=== PATIENT | female | born 1950 | race Caucasian/White ===

== ENCOUNTER 2016-06-13 07:47 | Inpatient (IN) | payer MEDICARE, OTHER ==
[2016-06-13] VITALS (16 sets, daily range): BP systolic 97–174; RESP 15–22; TEMP 97.5–98.5
[~2016-06-13 07:47] MED LIST: DIPHENHYDRAMINE 50 MG/ML VIAL IV ONE; FENTANYL 100 MCG/2 ML AMP IV ONE; GLYCOPYRROLATE 0.2 MG/ML VIAL IV ONE; LIDOCAINE 2% JELLY GLYDO 6 ML TOPICAL ONE; MEPERIDINE 25 MG/ML IV ONE; METOPROLOL 5 MG/5 ML VIAL IV ONE; NEOSTIGMINE 10 MG/10 ML VIAL IV ONE; PROPOFOL 20 ML PER ML IV ONE; ROCURONIUM 50 MG VIAL IV ONE
[2016-06-13] MEDS ORDERED: DILAUDID 1 MG/ML AMP ONE ×2 (09:16→11:37)
[2016-06-13] MEDS ORDERED: SODIUM CHLORIDE 0.9% 1,000 ML ONE (09:16)
[2016-06-13] MEDS ORDERED: ONDANSETRON 4 MG VIAL ONE (09:16)
[2016-06-13] MEDS ORDERED: METOCLOPRAMIDE 10 MG/2 ML VIAL ONE (11:36)
[2016-06-13] MEDS ORDERED: ONDANSETRON 4 MG VIAL IV PUSH PRN (12:30)
[2016-06-13] MEDS ORDERED: SODIUM CHLORIDE 0.45% 1,000 ML IV SCH (12:30)
[2016-06-13] MEDS: DILAUDID 1 MG/ML AMP IV PRN ×3 (14:34→23:40)
[2016-06-13] MEDS ORDERED: GLYCOPYRROLATE 0.2 MG/ML VIAL IV ONE (16:45)
[2016-06-13] MEDS ORDERED: LACT RINGERS 1,000 ML IV SCH (16:45)
[2016-06-13] MEDS ORDERED: MIDAZOLAM 2 MG/2 ML INJ IV ONE (16:45)
[2016-06-13] MEDS ORDERED: SCOPOLAMINE PATCH TRANSDERM ONE (16:45)
[2016-06-13] MEDS ORDERED: DEXAMETHASONE 4 MG/ML VIAL IV ONE (16:45)
[2016-06-13] MEDS ORDERED: ONDANSETRON 4 MG VIAL IV ONE (16:45)
[2016-06-13] MEDS ORDERED: CEFTRIAXONE 1 GM in SODIUM CHLORIDE 0.9% 50 ML IV ONE (17:30)
[2016-06-13] MEDS ORDERED: MORPHINE 4 MG/ML SYR IV PRN (17:55)
[2016-06-13] MEDS ORDERED: MORPHINE 2 MG/ML SYR IV PRN (17:55)
[2016-06-13] MEDS ORDERED: DILAUDID 1 MG/ML AMP IV PRN (17:55)
[2016-06-13] MEDS ORDERED: OXYCODONE 5 MG TAB PO PRN ×2 (17:55→19:10)
[2016-06-13] MEDS ORDERED: MEPERIDINE 25 MG/ML IV PRN (17:55)
[2016-06-13] MEDS ORDERED: ONDANSETRON 4 MG VIAL IV PRN (17:55)
[2016-06-13] MEDS ORDERED: GLUCAGON 1 MG VIAL IM PRN (19:15)
[2016-06-13] MEDS ORDERED: DEXTROSE 50% SYRINGE 50 ML IV PRN (19:15)
[2016-06-13] MEDS: Atorvastatin 40 MG TAB PO SCH (21:15)
[2016-06-13] MEDS: FENOFIBRATE 48 MG TAB PO SCH (21:15)
[2016-06-13] MEDS: METFORMIN 500 MG TAB PO SCH (21:24)
[2016-06-13] MEDS: SODIUM CHLORIDE 0.45% 1,000 ML IV SCH (21:35)
[2016-06-13] MEDS: OXYCODONE 5 MG TAB PO PRN (22:26)
[2016-06-13] MEDS: ONDANSETRON 4 MG VIAL IV PRN (23:42)
[2016-06-14] VITALS (8 sets, daily range): BP systolic 103–167; RESP 15–16; TEMP 98.1–99.6
[2016-06-14] MEDS: ACETAMINOPHEN 325 MG TAB PO PRN ×2 (00:51→21:54)
[2016-06-14] MEDS: DILAUDID 1 MG/ML AMP IV PRN ×4 (02:14→14:51)
[2016-06-14] MEDS: ONDANSETRON 4 MG VIAL IV PRN ×3 (05:49→14:51)
[2016-06-14] MEDS: LEVOTHYROXINE 0.15 MG TAB PO SCH (05:50)
[2016-06-14] MEDS: CEFTRIAXONE 1 GM in SODIUM CHLORIDE 0.9% 50 ML IV SCH (09:08)
[2016-06-14] MEDS: GLIMEPIRIDE 2 MG TAB PO SCH (09:09)
[2016-06-14] MEDS: Aspirin 325 MG TAB PO SCH (09:09)
[2016-06-14] MEDS: METFORMIN 500 MG TAB PO SCH ×2 (09:09→19:45)
[2016-06-14] MEDS: amLODIPine 10 MG TAB PO SCH (09:09)
[2016-06-14] MEDS: METOPROLOL XL 25 MG TAB PO SCH (09:09)
[2016-06-14] MEDS: VALSARTAN 80 MG TAB PO SCH (09:09)
[2016-06-14] MEDS ORDERED: MISSING DOSE XX ONE (10:45)
[2016-06-14] MEDS: PHENAZOPYRIDINE 100 MG TAB PO SCH ×3 (11:05→19:46)
[2016-06-14] MEDS: OXYCODONE 5 MG TAB PO PRN ×2 (11:11→19:46)
[2016-06-14] MEDS: SODIUM CHLORIDE 0.45% 1,000 ML IV SCH ×2 (12:20→21:51)
[2016-06-14] MEDS ORDERED: REMOVE TRANSDERMAL PATCH TOPICAL ONE (16:45)
[2016-06-14] MEDS: FENOFIBRATE 48 MG TAB PO SCH (19:46)
[2016-06-14] MEDS: Atorvastatin 40 MG TAB PO SCH (19:46)
[2016-06-15] VITALS (9 sets, daily range): BP systolic 107–152; RESP 16–18; TEMP 98–99.3
[2016-06-15] MEDS: OXYCODONE 5 MG TAB PO PRN ×4 (03:59→21:41)
[2016-06-15] MEDS: LEVOTHYROXINE 0.15 MG TAB PO SCH (04:00)
[2016-06-15] MEDS: CEFTRIAXONE 1 GM in SODIUM CHLORIDE 0.9% 50 ML IV SCH (08:21)
[2016-06-15] MEDS: Aspirin 325 MG TAB PO SCH (08:22)
[2016-06-15] MEDS: METFORMIN 500 MG TAB PO SCH ×2 (08:22→19:51)
[2016-06-15] MEDS: VALSARTAN 80 MG TAB PO SCH (08:22)
[2016-06-15] MEDS: PHENAZOPYRIDINE 100 MG TAB PO SCH ×3 (08:22→19:51)
[2016-06-15] MEDS: GLIMEPIRIDE 2 MG TAB PO SCH (08:23)
[2016-06-15] MEDS: amLODIPine 10 MG TAB PO SCH (08:23)
[2016-06-15] MEDS: METOPROLOL XL 25 MG TAB PO SCH (08:23)
[2016-06-15] MEDS: LEVOFLOXACIN 250 MG TAB PO SCH (11:47)
[2016-06-15] MEDS ORDERED: SALINE FLUSH 10 ML FLUSH PRN (19:25)
[2016-06-15] MEDS: Atorvastatin 40 MG TAB PO SCH (19:51)
[2016-06-15] MEDS: FENOFIBRATE 48 MG TAB PO SCH (19:51)
[2016-06-15] MEDS: SALINE FLUSH 10 ML FLUSH SCH (19:52)
[2016-06-16 03:17] VITALS: BP_SYST 151; TEMP 98.1
[2016-06-16 03:18] VITALS: RESP 16
[2016-06-16] MEDS ORDERED: SODIUM CHLORIDE 0.9% FLUSH BAG 500 ML IV SCH (06:00)
[2016-06-16] MEDS: LEVOTHYROXINE 0.15 MG TAB PO SCH (06:29)
[2016-06-16 07:44] VITALS: BP_SYST 145; RESP 16; TEMP 98.1
[2016-06-16] MEDS: CEFTRIAXONE 1 GM in SODIUM CHLORIDE 0.9% 50 ML IV SCH (07:48)
[2016-06-16] MEDS: SALINE FLUSH 10 ML FLUSH SCH (07:48)
[2016-06-16] MEDS: LEVOFLOXACIN 250 MG TAB PO SCH (07:49)
[2016-06-16] MEDS: VALSARTAN 80 MG TAB PO SCH (07:49)
[2016-06-16] MEDS: amLODIPine 10 MG TAB PO SCH (07:49)
[2016-06-16] MEDS: Aspirin 325 MG TAB PO SCH (07:49)
[2016-06-16] MEDS: PHENAZOPYRIDINE 100 MG TAB PO SCH (07:49)
[2016-06-16] MEDS: METFORMIN 500 MG TAB PO SCH (07:50)
[2016-06-16] MEDS: GLIMEPIRIDE 2 MG TAB PO SCH (07:50)
[2016-06-16] MEDS: METOPROLOL XL 25 MG TAB PO SCH (07:51)
[2016-06-16 11:13] VITALS: BP_SYST 129; RESP 16; TEMP 98.3
[2016-06-16] MEDS: OXYCODONE 5 MG TAB PO PRN (12:21)
[2016-06-16 13:16] VITALS: BP_SYST 129; RESP 16; TEMP 98.3
[2016-06-16] MEDS ORDERED: REMOVE SCOPALAMINE PATCH XX ONE (16:45)
== END 2016-06-16 14:13 | disposition home or self-care (01) | DRG 660 ==
LOC: ENRESERVDT → ENRESERVTM → ER 07:47 → EMR 12:35 → 5THW 13:21 → OBSVTOIN 06-14 10:14
PROVIDERS: ADMIT Urology; ATTEND Urology
PROC: 0TC18ZZ Extirpation of Matter from Left Kidney, Via Natural or Artificial Opening Endoscopic (ICD-10-PCS; principal; 2016-06-13 18:20)
CPT/HCPCS: 36415; 74176; 74420; 80048; 80053; 81001; 82947; 83690; 84550; 85025; 87077; 87088; 87186; 88300; 88360; 96361; 96374; 96375; 96376

== ENCOUNTER 2016-06-29 12:19 | Observation (INO) | payer MEDICARE ==
[~2016-06-29] VITALS: Ht 165.1 cm; Wt 97.5 kg
[2016-06-29] MEDS ORDERED: GLUCAGON 1 MG VIAL IM PRN (13:10)
[2016-06-29] MEDS ORDERED: DEXTROSE 50% SYRINGE 50 ML IV PRN (13:10)
[2016-06-29] MEDS ORDERED: PHARMACY TO DOSE VANCOMYCIN IV SCH (13:10)
[2016-06-29] MEDS ORDERED: ONDANSETRON 4 MG VIAL IV PUSH PRN (13:10)
[2016-06-29] MEDS ORDERED: DEXTROSE 5% LACT RINGERS 1,000 ML IV SCH (13:10)
[2016-06-29 13:23] VITALS: BP_SYST 148; RESP 16; TEMP 98.1
[2016-06-29 14:15] VITALS: Ht 165.1 cm; Wt 97.5 kg
[2016-06-29] MEDS: DILAUDID 1 MG/ML AMP IV PRN ×2 (14:25→21:57)
[2016-06-29] MEDS ORDERED: KAYEXOLATE 15 GM/60 ML BTL RECTAL ONE (15:35)
[2016-06-29 16:51] VITALS: BP_SYST 152; RESP 16; TEMP 99
[2016-06-29] MEDS ORDERED: KAYEXOLATE 15 GM/60 ML BTL PO ONE (18:10)
[2016-06-29] MEDS ORDERED: ONDANSETRON ODT 4 MG TAB PO PRN (18:20)
[2016-06-29] MEDS ORDERED: VALSARTAN 80 MG TAB PO SCH (18:32)
[2016-06-29] MEDS: FENOFIBRATE 145 MG TAB PO SCH (18:46)
[2016-06-29] MEDS: METOPROLOL XL 25 MG TAB PO SCH (18:46)
[2016-06-29] MEDS: GLIMEPIRIDE 2 MG TAB PO SCH (18:46)
[2016-06-29] MEDS: amLODIPine 10 MG TAB PO SCH (18:46)
[2016-06-29] MEDS: ASPIRIN 81 MG CHEW TAB PO SCH (18:47)
[2016-06-29] MEDS: LEVOTHYROXINE 0.15 MG TAB PO SCH (18:47)
[2016-06-29] MEDS: OXYCODONE 5 MG TAB PO PRN (18:51)
[2016-06-29] MEDS ORDERED: VANCOMYCIN 2,000 MG in SODIUM CHLORIDE 0.9% 500 ML IV SCH (19:00)
[2016-06-29] MEDS ORDERED: KAYEXOLATE 15 GM/60 ML BTL PO STA (19:07)
[2016-06-29] MEDS: SODIUM BICARB 8.4% 100 ML in SODIUM CHLORIDE 0.45% 1,000 ML IV SCH (19:52)
[2016-06-29 20:04] VITALS: BP_SYST 147; RESP 16; TEMP 98.9
[2016-06-29] MEDS ORDERED: Atorvastatin 40 MG TAB PO SCH (21:00)
[2016-06-29] MEDS ORDERED: Furosemide 40 MG/4 ML VIAL IV ONE (22:00)
[2016-06-29 23:44] VITALS: BP_SYST 145; RESP 16; TEMP 98.9
[2016-06-30] MEDS: SODIUM BICARB 8.4% 100 ML in SODIUM CHLORIDE 0.45% 1,000 ML IV SCH ×2 (03:49→06:26)
[2016-06-30 03:54] VITALS: BP_SYST 155; RESP 16; TEMP 98.2
[2016-06-30] MEDS ORDERED: MISSING DOSE XX ONE ×2 (06:10→08:20)
[2016-06-30] MEDS: LEVOTHYROXINE 0.15 MG TAB PO SCH (06:20)
[2016-06-30 08:44] VITALS: BP_SYST 143; RESP 16; TEMP 98.6
[2016-06-30] MEDS: FENOFIBRATE 145 MG TAB PO SCH (09:02)
[2016-06-30] MEDS: METOPROLOL XL 25 MG TAB PO SCH (09:02)
[2016-06-30] MEDS: ASPIRIN 81 MG CHEW TAB PO SCH (09:02)
[2016-06-30] MEDS: VANCOMYCIN SUSP 250 MG/5 ML UDC PO SCH ×3 (09:02→21:13)
[2016-06-30] MEDS: amLODIPine 10 MG TAB PO SCH (09:02)
[2016-06-30] MEDS: GLIMEPIRIDE 2 MG TAB PO SCH (09:02)
[2016-06-30 12:32] VITALS: BP_SYST 131; RESP 16; TEMP 99.1
[2016-06-30] MEDS: OXYCODONE 5 MG TAB PO PRN ×2 (13:53→21:13)
[2016-06-30 16:27] VITALS: BP_SYST 116; RESP 16; TEMP 98.7
[2016-06-30 18:17] VITALS: BP_SYST 116; RESP 16; TEMP 98.7
[2016-06-30] MEDS ORDERED: VANCOMYCIN 1,750 MG in SODIUM CHLORIDE 0.9% 500 ML IV SCH (19:00)
[2016-06-30 20:07] VITALS: BP_SYST 134; RESP 16; TEMP 98.7
[2016-07-01] MEDS ORDERED: SODIUM CHLORIDE 0.9% FLUSH BAG 500 ML IV SCH (06:00)
== END 2016-06-30 12:15 | disposition home or self-care (01) ==
LOC: TBA 12:28 → 5THW 12:54
PROVIDERS: ADMIT Urology; ATTEND Urology
DX: E87.5 Hyperkalemia (principal); N39.0 Urinary tract infection, site not specified; B96.20 Unspecified Escherichia coli [E. coli] as the cause of diseases classified elsewhere; E11.22 Type 2 diabetes mellitus with diabetic chronic kidney disease; I12.9 Hypertensive chronic kidney disease with stage 1 through stage 4 chronic kidney disease, or unspecified chronic kidney disease; Z79.84 Long term (current) use of oral hypoglycemic drugs; Z79.82 Long term (current) use of aspirin; E78.5 Hyperlipidemia, unspecified; E03.9 Hypothyroidism, unspecified; M19.90 Unspecified osteoarthritis, unspecified site; N17.9 Acute kidney failure, unspecified; A04.7 Enterocolitis due to Clostridium difficile; N18.3 Chronic kidney disease, stage 3 (moderate)
CPT/HCPCS: 36569; 71250; 74176; 76937; 80048; 80053; 80061; 81001; 82947; 83036; 84132; 85025; 87088; 87493; G0378; J1170; J7040; J7121